=== PATIENT | male | born 1945 ===

== ENCOUNTER 2019-04-09 21:55 | Emergency (ER) | payer MEDICARE, MEDICAID, OTHER ==
[~2019-04-09] VITALS: Ht 175.3 cm; Wt 64.5 kg
[2019-04-09 22:04] VITALS: BP 140/72
== END 2019-04-09 23:05 | disposition home or self-care (01) ==
LOC: ED 23:00
DX: M79.601 Pain in right arm (principal)
CPT/HCPCS: 99281